=== PATIENT | male | born 1955 | race African-American/Black ===

== ENCOUNTER 2017-04-05 10:55 | Outpatient (CLI) | payer OTHER ==
[~2017-04-05 10:55] MED LIST: HYDROCHLOROTH12.5 M2 ORAL; NITROSTAT0.4 M1 SL; PLAVIX75 MG ORAL
--- NOTE | 2017-04-05 12:22 | Diagnostic Imaging Report ---
Indication: Pain Findings: 3 views of the right shoulder were obtained. No acute fractures, malalignment, erosions or periostitis are identified. Bone mineralization is within normal limits. Soft tissues are unremarkable. Impression: Negative examination of the shoulder.
== END 2017-04-05 12:55 | disposition home or self-care (01) ==
LOC: RAD 10:55
DX: M25.511 Pain in right shoulder (principal)

== ENCOUNTER → 2019-06-06 | Outpatient (CLI) | payer OTHER ==
--- NOTE | 2019-06-06 13:13 | Diagnostic Imaging Report ---
Indication: Back pain Comparison: None Findings: 3 views of the lumbar spine were obtained. No fracture is identified. There is narrowing of intervertebral disc at L5-S1. Marginal endplate spurs are demonstrated within the lower lumbar spine. No malalignment seen. impression: No acute injury identified
== END | disposition home or self-care (01) ==
LOC: RAD 09:24
DX: M54.5 Low back pain (principal)
CPT/HCPCS: 72110